=== PATIENT | male | born 1985 | race Native Hawaiian/Other Pacific Islander ===

== ENCOUNTER 2023-03-23 09:18 | Emergency (ER) | payer OTHER ==
[~2023-03-23] VITALS: Ht 175.3 cm; Wt 106.6 kg
[2023-03-23 09:37] LABS: PLATELET COUNT 334 K/uL (142-355)
[2023-03-23 09:43] LABS: POTASSIUM 3.8 mmol/L (3.6-5.2)
[2023-03-23 12:45] VITALS: BP 126/86; TEMP 97.8
== END 2023-03-23 12:50 ==
LOC: ED 09:18
PROVIDERS: Emergency Medicine
DX: J18.8 Other pneumonia, unspecified organism (principal); R79.89 Other specified abnormal findings of blood chemistry; F12.90 Cannabis use, unspecified, uncomplicated; F10.90 Alcohol use, unspecified, uncomplicated; F17.200 Nicotine dependence, unspecified, uncomplicated; R41.82 Altered mental status, unspecified
CPT/HCPCS: 36415; 80053; 80307; 80320; 82550; 84484; 85027; 85379; 93005; 96360; 96372; 99284; J0696; Q9963